=== PATIENT | male | born 1960 | race African-American/Black ===

== ENCOUNTER → 2017-11-27 | Outpatient (CLI) | payer OTHER ==
[~2017-11-27] MED LIST: LIDOCAINE HCL/PF 1% 10 MG/ML 30ML VIAL ONE; SODIUM BICARBONATE 4% (2.4MEQ) 5ML VIAL IV ONE
== END | disposition home or self-care (01) ==
LOC: US 12:19
PROVIDERS: ATTEND Surgery
DX: R19.05 Periumbilic swelling, mass or lump (principal); K42.9 Umbilical hernia without obstruction or gangrene
CPT/HCPCS: 49406; 76705; 76942; 87070; 87205; 89050; J3490